=== PATIENT | male | born 1975 | race Caucasian/White ===

== ENCOUNTER 2021-03-19 11:51 | Emergency (ER) | payer OTHER ==
[2021-03-19] MEDS ORDERED: Aspirin 81 MG Tab.Chew PO ONE (12:28)
[2021-03-19] MEDS ORDERED: Sodium Chloride 0.9% 10 ML Syringe FLUSH PRN (12:28)
[2021-03-19] MEDS ORDERED: Vancomycin 2 GM in Sodium Chloride 0.9% 500 ML IV ONE (12:29)
[2021-03-19] MEDS ORDERED: Diphtheria,Pertussis(Acell),Tetanus Vaccine 0.5 ML Syringe IM ONE (12:32)
--- NOTE | 2021-03-19 15:22 | EDM.PDOC ---
ED HPI GENERAL MEDICAL PROBLEM - General Chief Complaint: Chest Pain Stated Complaint: CHEST PAIN Time Seen by Provider: 03/19/21 12:14 Source of Information: Reports: Patient History Limitations: Reports: No Limitations - History of Present Illness INITIAL COMMENTS - FREE TEXT/NARRATIVE: The patient presents with chest pain and left leg infection. He said this all started about 2 weeks ago. [place] got what looked like a bug bite to his left leg. He saw his doctor and at that time is doctor did not think it was an infection. It progressed and he was seen in the clinic again and they did an US of his left leg and there was no sign of DVT. It progressed more and he was seen at the ER on Saturday and given a dose of ancef and put on keflex. He is on his way to [facility] and he developed chest pain and a little shortness of breath. He has type I diabetes. He has no history of heart disease, hypercholesterolemia, hypertension and he does not smoke. The pain is gone now. Onset: Sudden Duration: Hour(s): Location: Reports: Chest Quality: Reports: Sharp Severity: Moderate Improves with: Reports: None Worsens with: Reports: None Associated Symptoms: Reports: Chest Pain, Shortness of Breath. Denies: Cough, Fever/Chills, Headaches, Nausea/Vomiting Chest Pain Score (Numeric/FACES): 3 Left Leg Pain Score (Numeric/FACES): 2 - Related Data Allergies Allergy/AdvReac Type Severity Reaction Status Date / Time Penicillins Allergy Hives Verified 03/19/21 12:25 Home Meds: Home Meds Sulfamethoxazole/Trimethoprim [Bactrim Ds Tablet] 1 each PO BID #20 tablet 03/19/21 [Rx] Past Medical History Respiratory History: Reports: Sleep Apnea, Other (See Below) Other Respiratory History: uses C-PAP. Gastrointestinal History: Reports: GERD Musculoskeletal History: Reports: Fracture Endocrine/Metabolic History: Reports: Diabetes, Type I, IDDM - Infectious Disease History Infectious Disease History: Reports: Chicken Pox - Past Surgical History HEENT Surgical History: Reports: Retinal, Other (See Below) Other HEENT Surgeries/Procedures: surgery for retinopathy Musculoskeletal Surgical History: Reports: Carpal Tunnel Social & Family History - Tobacco Use Tobacco Use Status *Q: Never Tobacco User Second Hand Smoke Exposure: No - Caffeine Use Caffeine Use: Reports: Coffee, Soda - Recreational Drug Use Recreational Drug Use: No ED ROS GENERAL - Review of Systems Review Of Systems: See Below Constitutional: Reports: No Symptoms HEENT: Reports: No Symptoms Respiratory: Reports: No Symptoms Cardiovascular: Reports: Chest Pain Endocrine: Reports: No Symptoms GI/Abdominal: Reports: No Symptoms : Reports: No Symptoms Musculoskeletal: Reports: Other (Left leg pain) ED EXAM, GENERAL - Physical Exam Exam: See Below Exam Limited By: No Limitations General Appearance: Alert, No Apparent Distress Ears: Normal External Exam Nose: Normal Inspection Head: Atraumatic, Normocephalic Neck: Normal Inspection Respiratory/Chest: No Respiratory Distress, Lungs Clear, Normal Breath Sounds Cardiovascular: Regular Rate, Rhythm, No Edema, No Murmur GI/Abdominal: Soft, Non-Tender, No Organomegaly, No Mass Extremities: Other (4cm X 4cm area with erythema and an ulcer in the middle) Neurological: Alert, Oriented, No Motor/Sensory Deficits #1 Interpretation EKG Date: 03/19/21 Time: 12:00 Rhythm: NSR Rate (Beats/Min): 80 [place]: Normal P-Wave: Present QRS: Normal ST-T: Normal QT: Normal Course - Vital Signs Last Recorded V/S: Last Vital Signs Temp 97.0 F 03/19/21 11:55 Pulse 78 03/19/21 11:55 Resp 18 03/19/21 11:55 BP 164/84 H 03/19/21 11:55 Pulse Ox 97 03/19/21 11:55 - Orders/Labs/Meds Orders: Active Orders 24 hr Category Date Time Status Cardiac Monitoring [RC] . DIRECTED Care 03/19/21 12:28 Active EKG 12 Lead [EKG Documentation Completion] [RC] STAT Care 03/19/21 12:15 Active Peripheral IV Care [RC] . DIRECTED Care 03/19/21 12:29 Active Vaccines to be Administered [RC] PER UNIT ROUTINE Care 03/19/21 12:32 Active Chest 1V Frontal [CR] Stat Exams 03/19/21 12:29 Taken Sodium Chloride 0.9% [Saline Flush] Med 03/19/21 12:28 Active 10 ml FLUSH ASDIRECTED PRN Peripheral IV Insertion Adult [OM.PC] Stat Oth 03/19/21 12:28 Ordered Medication Orders Sodium Chloride (Sodium Chloride 0.9% 10 Ml Syringe) 10 ml FLUSH ASDIRECTED PRN PRN Reason: Keep Vein Open Last Admin: 03/19/21 12:05 Dose: 10 ml Documented by: OC Labs: Laboratory Tests 03/19/21 03/19/21 03/19/21 Range/Units 12:05 12:05 12:39 WBC 8.85 (4.23-9.07) K/mm3 RBC 4.72 (4.63-6.08) M/mm3 Hgb 14.8 (13.7-17.5) gm/dl Hct 43.5 (40.1-51.0) % MCV 92.2 (79.0-92.2) fl MCH 31.4 (25.7-32.2) pg MCHC 34.0 (32.2-35.5) g/dl RDW Std Deviation 41.9 (35.1-43.9) fL Plt Count 334 (163-337) K/mm3 MPV 8.7 L (9.4-12.3) fl Neut % (Auto) 58.3 (34.0-67.9) % Lymph % (Auto) 24.3 (21.8-53.1) % [place] % (Auto) 13.1 H (5.3-12.2) % Eos % (Auto) 3.7 (0.8-7.0) Baso % (Auto) 0.5 (0.1-1.2) % Neut # (Auto) 5.16 (1.78-5.38) K/mm3 Lymph # (Auto) 2.15 (1.32-3.57) K/mm3 [place] # (Auto) 1.16 H (0.30-0.82) K/mm3 Eos # (Auto) 0.33 (0.04-0.54) K/mm3 Baso # (Auto) 0.04 (0.01-0.08) K/mm3 Sodium 143 (136-145) mEq/L Potassium 4.1 (3.5-5.1) mEq/L Chloride 106 (98-107) mEq/L Carbon Dioxide 28 (21-32) mEq/L Anion Gap 13.1 (5-15) BUN 16 (7-18) mg/dL Creatinine 0.9 (0.7-1.3) mg/dL Est Cr Clr Drug Dosing 112.57 mL/min Estimated GFR (MDRD) > 60 (>60) mL/min BUN/Creatinine Ratio 17.8 (14-18) Glucose 160 H (70-99) mg/dL Lactic Acid 0.9 (0.4-2.0) mmol/L Calcium 8.9 (8.5-10.1) mg/dL Total Bilirubin 0.4 (0.2-1.0) mg/dL AST 22 (15-37) U/L ALT 23 (16-63) U/L Alkaline Phosphatase 62 (46-116) U/L Troponin I < 0.017 (0.00-0.056) ng/mL C-Reactive Protein 3.3 H* (<1.0) mg/dL Total Protein 7.8 (6.4-8.2) g/dl Albumin 3.7 (3.4-5.0) g/dl Globulin 4.1 gm/dL Albumin/Globulin Ratio 0.9 L (1-2) Meds: Medications Generic Name Dose Route Start Last Admin Trade Name Ingrid PRN Reason Stop Dose Admin Sodium Chloride 10 ml 03/19/21 12:28 03/19/21 12:05 Sodium Chloride 0.9% 10 Ml Syringe FLUSH 10 ml ASDIRECTED PRN Administration Keep Vein Open Discontinued Medications Generic Name Dose Route Start Last Admin Trade Name Ingrid PRN Reason Stop Dose Admin Aspirin 324 mg 03/19/21 12:28 03/19/21 12:54 Aspirin 81 Mg Tab.Chew PO 03/19/21 12:29 324 mg ONETIME ONE Administration Diphtheria/Tetanus/Acell Pertussis 0.5 ml 03/19/21 12:32 03/19/21 12:51 Diphtheria,Pertussis(Acell),Tetanus Vaccine 0.5 Ml Syringe IM 03/19/21 12:33 0.5 ml .ONCE ONE Administration Vancomycin HCl 2 gm/ Sodium 500 mls @ 250 mls/hr 03/19/21 12:29 03/19/21 12:50 Chloride IV 03/19/21 12:30 250 mls/hr ONETIME ONE Administration - Re-Assessments/Exams Free Text/Narrative Re-Assessment/Exam: 03/19/21 15:24 I ordered an IV saline lock, EKG, CXR, labs, aspirin, and vancomycin 2 grams IV. His EKG shows a NSR with no acute changes. His CXR looks good. His CBC looks good with a normal WBC. His glucose was 160. His troponin is negative. His CRP is elevated at 3.3. I offered to admit him for IV antibiotics. He did not want that. He wants to switch antibiotics. I will switch him to bactrim. Departure - Departure Time of Disposition: 15:30 Disposition: Home, Self-Care 01 Condition: Good Clinical Impression: Atypical chest pain Cellulitis Qualifiers: Site of cellulitis: extremity Site of cellulitis of extremity: lower extremity Laterality: left Qualified Code(s): L03.116 - Cellulitis of left lower limb Prescriptions: Sulfamethoxazole/Trimethoprim [Bactrim Ds Tablet] 1 each PO BID #20 tablet Referrals: PCP,Not In Area [Primary Care Provider] - Additional Instructions: Take the bactrim 2 times per day for 10 days. Clean your wound with warm soapy water 2 times per day and apply antibiotic ointment after. Put warm compresses on your leg 3 times per day. Please go to an ER on the way if you get worse. Sepsis Event Note (ED) - Evaluation Sepsis Screening Result: No Definite Risk - Focused Exam Vital Signs: Vital Signs Temp Pulse Resp BP Pulse Ox 03/19/21 11:55 97.0 F 78 18 164/84 H 97 - My Orders Last 24 Hours: My Active Orders 03/19/21 12:15 EKG 12 Lead [EKG Documentation Completion] [RC] STAT 03/19/21 12:28 Cardiac Monitoring [RC] . DIRECTED Sodium Chloride 0.9% [Saline Flush] 10 ml FLUSH ASDIRECTED PRN Peripheral IV Insertion Adult [OM.PC] Stat 03/19/21 12:29 Peripheral IV Care [RC] . DIRECTED Chest 1V Frontal [CR] Stat 03/19/21 12:32 Vaccines to be Administered [RC] PER UNIT ROUTINE - Assessment/Plan Last 24 Hours: My Active Orders 03/19/21 12:15 EKG 12 Lead [EKG Documentation Completion] [RC] STAT 03/19/21 12:28 Cardiac Monitoring [RC] . DIRECTED Sodium Chloride 0.9% [Saline Flush] 10 ml FLUSH ASDIRECTED PRN Peripheral IV Insertion Adult [OM.PC] Stat 03/19/21 12:29 Peripheral IV Care [RC] . DIRECTED Chest 1V Frontal [CR] Stat 03/19/21 12:32 Vaccines to be Administered [RC] PER UNIT ROUTINE
--- NOTE | 2021-03-19 16:12 | CR ---
Chest: Portable view of the chest was obtained. Comparison: No prior chest imaging is available. Heart size and mediastinum are normal. Lungs are clear with no acute parenchymal change. Slight degenerative spurring is noted within the spine. No acute osseous abnormality is appreciated. Impression: 1. Nothing acute is seen on portable chest x-ray. Diagnostic code #2
== END 2021-03-19 15:41 | disposition home or self-care (01) ==
LOC: JD.ED 11:51
DX: R07.89 Other chest pain (principal); L03.116 Cellulitis of left lower limb; E11.621 Type 2 diabetes mellitus with foot ulcer; L97.829 Non-pressure chronic ulcer of other part of left lower leg with unspecified severity; Z23 Encounter for immunization
CPT/HCPCS: 36415; 71045; 80053; 83605; 84484; 85025; 86140; 90471; 90715; 93005; 96365; 96366; 99285; A9270; J3370; J7040; 93010; 99284